=== PATIENT | male | born 1965 | race Caucasian/White ===

== ENCOUNTER 2021-04-27 21:38 | Inpatient (IN) | payer SELFPAY ==
[2021-04-27] MEDS ORDERED: SODIUM CHLORIDE 0.9% 1,000 ML IV STA (21:55)
--- NOTE | 2021-04-27 21:58 | ED ---
Overdose HPI - General Stated Complaint: Mental Health Time Seen by Provider: 04/27/21 21:50 - History of Present Illness Initial Comments: Patient's 55-year-old man brought to have evaluation after he took an overdose of his medications. Patient had been out drinking earlier. His had picked him up and brought him home. She states that they are going through a divorce so he has been stressed. The patient then reportedly told his children that would be around anymore because she had taken an overdose. He reportedly took the remainder of the medications in his gabapentin and atenolol bottles which was around 20 tablets of each. MD Complaint: intentional overdose Onset/Timin -: minutes(s) Intent: suicide attempt How Overdose Was Discovered: family/friend present at time Context: Intentional Overdose: relationship problems - Related Data Allergies Allergy/AdvReac Type Severity Reaction Status Date / Time NSAIDS (Non-Steroidal Allergy Rash/Hives Verified 04/27/21 22:40 Anti-Inflamma Review of Systems ROS Statement: Those systems with pertinent positive or pertinent negative responses have been documented in the HPI. ROS Other: All systems not noted in ROS Statement are negative. Limitations: ROS unobtainable due to patients medical condition General Exam General appearance: alert, appears intoxicated Head exam: Present: atraumatic, normocephalic Eye exam: Present: normal appearance, nystagmus. Absent: scleral icterus, conjunctival injection Neck exam: Present: normal inspection, full ROM. Absent: tenderness Respiratory exam: Present: normal lung sounds bilaterally. Absent: respiratory distress, wheezes, rales, rhonchi, stridor, accessory muscle use Cardiovascular Exam: Present: regular rate, normal rhythm, normal heart sounds. Absent: systolic murmur, diastolic murmur, rubs, gallop GI/Abdominal exam: Present: soft, hernia (Umbilical hernia, nontender). Absent: distended, tenderness, guarding, rebound, rigid, mass, pulsatile mass Extremities exam: Present: normal inspection, normal capillary refill. Absent: pedal edema, calf tenderness Back exam: Present: normal inspection Neurological exam: Present: alert, oriented X3. Absent: motor sensory deficit Skin exam: Present: warm, dry, intact, normal color. Absent: rash Course Vital Signs 04/27/21 21:41 Temperature 97.5 F L Pulse Rate 96 Respiratory 17 Rate Blood Pressure 125/97 O2 Sat by Pulse 95 Oximetry Procedures - Restraint - Face to Face Restraint Occurrence 1 Patient's Immediate Situation: Endangers others' safety Patient's Reaction to the Intervention: Uncooperative, Angry, Belligerent, Suspicious, Resistive to care Patient's Medical & Behavioral Condition: Drowsy, Depressed, Suicidal thoughts Need to Continue or Terminate Restraint or Seclusion: Continue Face to Face Eval of Restraint Date: 04/27/21 Face to Face Eval of Restraint Time: 21:50 Medical Decision Making - Lab Data Result diagrams: 04/27/21 22:00 04/27/21 22:00 Lab Results 04/27/21 04/27/21 04/27/21 Range/Units 22:00 22:00 22:00 WBC 13.2 H (3.8-10.6) k/uL RBC 6.43 H (4.30-5.90) m/uL Hgb 15.2 (13.0-17.5) gm/dL Hct 47.5 (39.0-53.0) % MCV 73.9 L (80.0-100.0) fL MCH 23.7 L (25.0-35.0) pg MCHC 32.1 (31.0-37.0) g/dL RDW 14.9 (11.5-15.5) % Plt Count 267 (150-450) k/uL MPV 6.6 Neutrophils % 53 % Lymphocytes % 36 % Monocytes % 5 % Eosinophils % 3 % Basophils % 1 % Neutrophils # 7.1 (1.3-7.7) k/uL Lymphocytes # 4.7 (1.0-4.8) k/uL Monocytes # 0.6 (0-1.0) k/uL Eosinophils # 0.4 (0-0.7) k/uL Basophils # 0.1 (0-0.2) k/uL Microcytosis Slight Sodium 143 (137-145) mmol/L Potassium 3.9 (3.5-5.1) mmol/L Chloride 100 (98-107) mmol/L Carbon Dioxide 27 (22-30) mmol/L Anion Gap 16 mmol/L BUN 13 (9-20) mg/dL Creatinine 0.88 (0.66-1.25) mg/dL Est GFR (CKD-EPI)AfAm >90 (>60 ml/min/1.73 sqM) Est GFR (CKD-EPI)NonAf >90 (>60 ml/min/1.73 sqM) Glucose 100 H (74-99) mg/dL Calcium 9.5 (8.4-10.2) mg/dL Total Bilirubin 0.5 (0.2-1.3) mg/dL AST 30 (17-59) U/L ALT 41 (4-49) U/L Alkaline Phosphatase 99 (38-126) U/L Troponin I <0.012 (0.000-0.034) ng/mL Total Protein 8.5 H (6.3-8.2) g/dL Albumin 5.0 (3.5-5.0) g/dL Salicylates <1.0 mg/dL Acetaminophen <10.0 ug/mL Serum Alcohol 248 H* mg/dL Coronavirus (PCR) (Not Detectd) 04/27/21 Range/Units 22:03 WBC (3.8-10.6) k/uL RBC (4.30-5.90) m/uL Hgb (13.0-17.5) gm/dL Hct (39.0-53.0) % MCV (80.0-100.0) fL MCH (25.0-35.0) pg MCHC (31.0-37.0) g/dL RDW (11.5-15.5) % Plt Count (150-450) k/uL MPV Neutrophils % % Lymphocytes % % Monocytes % % Eosinophils % % Basophils % % Neutrophils # (1.3-7.7) k/uL Lymphocytes # (1.0-4.8) k/uL Monocytes # (0-1.0) k/uL Eosinophils # (0-0.7) k/uL Basophils # (0-0.2) k/uL Microcytosis Sodium (137-145) mmol/L Potassium (3.5-5.1) mmol/L Chloride (98-107) mmol/L Carbon Dioxide (22-30) mmol/L Anion Gap mmol/L BUN (9-20) mg/dL Creatinine (0.66-1.25) mg/dL Est GFR (CKD-EPI)AfAm (>60 ml/min/1.73 sqM) Est GFR (CKD-EPI)NonAf (>60 ml/min/1.73 sqM) Glucose (74-99) mg/dL Calcium (8.4-10.2) mg/dL Total Bilirubin (0.2-1.3) mg/dL AST (17-59) U/L ALT (4-49) U/L Alkaline Phosphatase (38-126) U/L Troponin I (0.000-0.034) ng/mL Total Protein (6.3-8.2) g/dL Albumin (3.5-5.0) g/dL Salicylates mg/dL Acetaminophen ug/mL Serum Alcohol mg/dL Coronavirus (PCR) Not Detected (Not Detectd) - EKG Data -: EKG Interpreted by Mn EKG shows normal: sinus rhythm, axis (Normal), intervals (NJ interval 230 milliseconds, prolonged consistent with first-degree AV block. QRS duration 94 ms, QTC 437 ms, both normal), QRS complexes (Normal), ST-T waves (Normal) Rate: normal (Rate 92 bpm) Disposition Referrals: None,Stated [REFERRING] - 1-2 days
[2021-04-27 22:07] LABS: Basophils # (A) 0.1 k/uL (0-0.2); Basophils % (A) 1 %; Eosinophils # (A) 0.4 k/uL (0-0.7); Eosinophils % (A) 3 %; HCT 47.5 % (39.0-53.0); HGB 15.2 gm/dL (13.0-17.5); Lymphocytes # (A) 4.7 k/uL (1.0-4.8); Lymphocytes % (A) 36 %; MCH 23.7 pg (25.0-35.0); MCHC 32.1 g/dL (31.0-37.0); MCV 73.9 fL (80.0-100.0); Mean Platelet Volume 6.6; Microcytosis Slight; Monocytes # (A) 0.6 k/uL (0-1.0); Monocytes % (A) 5 %; Neutrophils # (A) 7.1 k/uL (1.3-7.7); Neutrophils % (A) 53 %; Platelet Count 267 k/uL (150-450); RBC 6.43 m/uL (4.30-5.90); RDW 14.9 % (11.5-15.5); WBC 13.2 k/uL (3.8-10.6)
--- NOTE | 2021-04-27 22:21 | XR ---
EXAMINATION TYPE: XR chest 1V portable DATE OF EXAM: 04/27/2021 COMPARISON: NONE HISTORY: Overdose TECHNIQUE: Single view FINDINGS: There is no heart failure nor confluent pneumonic infiltrate. Costophrenic angles are clear . There is old right posterior sixth rib fracture. IMPRESSION: No active cardiopulmonary disease.
[2021-04-27 22:37] LABS: ALT 41 U/L (4-49); AST 30 U/L (17-59); Acetaminophen <10.0 ug/mL; African American GFR (CKD) >90 (>60 ml/min/1.73 sqM); Alkaline Phosphatase 99 U/L (38-126); Anion Gap 16 mmol/L; Blood Urea Nitrogen 13 mg/dL (9-20); Calcium 9.5 mg/dL (8.4-10.2); Carbon Dioxide 27 mmol/L (22-30); Chloride 100 mmol/L (98-107); Glucose 100 mg/dL (74-99); Non-African American GFR(CKD) >90 (>60 ml/min/1.73 sqM); Potassium 3.9 mmol/L (3.5-5.1); Salicylate <1.0 mg/dL; Sodium 143 mmol/L (137-145); Total Bilirubin 0.5 mg/dL (0.2-1.3); Total Protein 8.5 g/dL (6.3-8.2)
[2021-04-27 22:39] LABS: Alcohol 248 mg/dL
[2021-04-28 07:11] LABS: Amphetamine Screen,Urine Not Detected (NotDetected); Barbiturate Screen,Urine Not Detected (NotDetected); Benzodiazepines Screen,Urine Not Detected (NotDetected); Cocaine Screen,Urine Not Detected (NotDetected); Methadone Screen, Urine Not Detected (NotDetected); Opiate Screen,Urine Not Detected (NotDetected); Oxycodone Screen, Urine Not Detected (NotDetected); Phencyclidine Screen,Urine Not Detected (NotDetected); Tricyclic Antidepressant,Urine Not Detected (NotDetected); Urn Cannabinoid Scrn Not Detected (NotDetected)
[2021-04-28] MEDS: SODIUM CHLORIDE 0.9% 1,000 ML IV SCH (08:08)
[2021-04-28] MEDS ORDERED: MELATONIN 5 MG TABLET PO PRN (08:24)
[2021-04-28] MEDS ORDERED: ATORVASTATIN 40 MG TAB PO SCH (08:30)
[2021-04-28] MEDS ORDERED: GABAPENTIN 300 MG CAP PO SCH (09:00)
[2021-04-28 09:21] LABS: African American GFR (CKD) >90 (>60 ml/min/1.73 sqM); Anion Gap 10 mmol/L; Blood Urea Nitrogen 13 mg/dL (9-20); Calcium 8.6 mg/dL (8.4-10.2); Carbon Dioxide 26 mmol/L (22-30); Chloride 106 mmol/L (98-107); Glucose 90 mg/dL (74-99); Non-African American GFR(CKD) >90 (>60 ml/min/1.73 sqM); Sodium 142 mmol/L (137-145)
[2021-04-28 09:23] LABS: Basophils # (A) 0.1 k/uL (0-0.2); Basophils % (A) 0 %; Eosinophils # (A) 0.2 k/uL (0-0.7); Eosinophils % (A) 2 %; HCT 43.2 % (39.0-53.0); HGB 13.2 gm/dL (13.0-17.5); Hypochromasia Moderate; Lymphocytes # (A) 1.9 k/uL (1.0-4.8); Lymphocytes % (A) 17 %; MCH 23.4 pg (25.0-35.0); MCHC 30.4 g/dL (31.0-37.0); Mean Platelet Volume 7.4; Monocytes # (A) 0.6 k/uL (0-1.0); Monocytes % (A) 5 %; Neutrophils # (A) 8.4 k/uL (1.3-7.7); Neutrophils % (A) 75 %; Platelet Count 271 k/uL (150-450); RBC 5.61 m/uL (4.30-5.90); RDW 15.2 % (11.5-15.5); WBC 11.2 k/uL (3.8-10.6)
[2021-04-28 09:33] LABS: Magnesium 2.2 mg/dL (1.6-2.3); Potassium 5.5 mmol/L (3.5-5.1)
[2021-04-28] MEDS: FAMOTIDINE 20 MG/2 ML VIAL IV SCH ×2 (11:26→21:55)
[2021-04-28] MEDS: HEPARIN SODIUM,PORCINE/PF 5,000 UNIT/0.5 ML SYRINGE SQ SCH ×2 (11:27→21:50)
--- NOTE | 2021-04-28 11:40 | P.CNPUL ---
History of Present Illness Consult date: 04/28/21 Requesting physician: Bernard E Sheet Reason for consult: hypoxemia, other (Beta mahi overdose) Chief complaint: Altered mental status History of present illness: This is a 55-year-old male patient was brought into the emergency room after he admitted to taking half a bottle of atenolol,gabapentin and Requip. He apparently is going through a divorce and was depressed and had been drinking. Alcohol level 248 on arrival. He is seen in the emergency room. Currently obtunded. Arousable. Garbled speech. Requiring 5 L nasal cannula to maintain O2 saturations in the 90s. His been afebrile. Heart rate in the 70s and 80s. Blood pressure stable. Chest x-ray reveals no acute pulmonary process. EKG reveals sinus rhythm with a first-degree AV block. White count 11.2. Hemoglobin 13.2. Sodium 142. Potassium 5.5. Creatinine 0.9. Lactic acid 1.6. Troponins negative 3. Urine drug screen negative. Alcohol level 248. Alcocer virus by PCR not detected. Normal saline at 100 ML's per hour. Heparin for DVT prophylaxis. Review of Systems ROS unobtainable: due to mental status Past Medical History Past Medical History: Hyperlipidemia, Sleep Apnea/CPAP/BIPAP History of Any Multi-Drug Resistant Organisms: None Reported Past Surgical History: No Surgical Hx Reported Past Psychological History: Depression Smoking Status: Current every day smoker Past Alcohol Use History: Abuse, Daily, Heavy Past Drug Use History: Prescription Drug Abuse Medications and Allergies Home Medications Medication Instructions Recorded Confirmed Type Acetaminophen Tab [Tylenol] 325 mg PO DAILY PRN 04/27/21 04/27/21 History Atorvastatin [Lipitor] 40 mg PO DIRECTED 04/27/21 04/27/21 History Gabapentin 300 mg PO TID 04/27/21 04/27/21 History Melatonin 5 mg PO HS 04/27/21 04/27/21 History atenoloL 25 mg PO DAILY 04/27/21 04/27/21 History rOPINIRole HCL [Requip] 4 mg PO HS 04/27/21 04/27/21 History Allergies Allergy/AdvReac Type Severity Reaction Status Date / Time NSAIDS (Non-Steroidal Allergy Rash/Hives Verified 04/27/21 22:40 Anti-Inflamma Physical Exam Vitals: Vital Signs Temp Pulse Resp BP Pulse Ox 04/28/21 07:35 98.4 F 76 18 123/78 96 04/28/21 05:46 78 18 109/65 97 04/28/21 03:31 77 17 106/45 97 04/28/21 01:01 83 19 121/73 93 L 04/27/21 23:09 86 15 101/67 95 04/27/21 21:41 97.5 F L 96 17 125/97 95 Intake and Output 04/27/21 04/28/21 04/28/21 22:59 06:59 14:59 Other: Weight 122.47 kg GENERAL EXAM: Obtunded but arousable, 55-year-old male, on 5 L nasal cannula, in no apparent distress. HEAD: Normocephalic. EYES: Normal reaction of pupils, equal size. NOSE: Clear with pink turbinates. THROAT: No erythema or exudates. NECK: No masses, no JVD. CHEST: No chest wall deformity. LUNGS: Equal air entry with no crackles, wheeze, rhonchi or dullness. CVS: S1 and S2 normal with no audible murmur, regular rhythm. ABDOMEN: No hepatosplenomegaly, normal bowel sounds, no guarding or rigidity. SPINE: No scoliosis or deformity SKIN: No rashes CENTRAL NERVOUS SYSTEM: No focal deficits, tone is normal in all 4 extremities. EXTREMITIES: There is no peripheral edema. No clubbing, no cyanosis. Peripheral pulses are intact. Results - Laboratory Findings CBC and BMP: 04/28/21 07:19 04/28/21 07:19 Abnormal lab findings: Abnormal Labs 04/27/21 04/27/21 04/27/21 22:00 22:00 22:00 WBC 13.2 H RBC 6.43 H MCV 73.9 L MCH 23.7 L MCHC Neutrophils # Potassium Glucose 100 H Plasma Lactic Acid Lewis 2.9 H* Total Protein 8.5 H Serum Alcohol 248 H* 04/28/21 04/28/21 07:19 07:19 WBC 11.2 H RBC MCV 77.0 L MCH 23.4 L MCHC 30.4 L Neutrophils # 8.4 H Potassium 5.5 H Glucose Plasma Lactic Acid Lewis Total Protein Serum Alcohol - Diagnostic Findings Chest x-ray: image reviewed Assessment and Plan Assessment: 1 Altered mental status secondary to suspected drug overdose of gabapentin, atenolol and Requip. Also excessive alcohol intake with EtOH level 248. Apparently going through a divorce and is depressed and attempted to commit suicide 2 Acute hypoxemic respiratory failure secondary to above, currently on 5 L nasal cannula Plan: The patient was seen and evaluated Contact poison control regarding beta mahi overdose Titrate the FiO2 as tolerated Psychiatric consult Cardiac monitoring We will continue to follow and make further recommendations based on his clinical status I, the cosigning physician, performed a history & physical examination of the patient. Lungs sounds are clear. Maintaining good O2 saturations in the 90s on 5 L/m per nasal cannula. I discussed the assessment and plan of care with my nurse practitioner, Saadia Encarnacion. I attest to the above consultation as dictated by her. Time with Patient: Greater than 30
--- NOTE | 2021-04-28 12:47 | P.HPIM ---
History of Present Illness This is a pleasant 55 years old male with past medical history of hyperlipidemia, sleep apnea on CPAP/BiPAP, depression, alcohol abuse, nicotine dependence and history of prescription drug abuse Patient seen and evaluated in the emergency room, patient was still drowsy with slurred speech from his alcohol intoxication however we had to remind the patient to stay awake and repeat questions several times psych and answered. Patient he knows he is in [facility], he thought today is April and he noted the president name Laura. He states to me that she took his pills for restless leg syndrome, and consumed half of the bottle which he estimates about 15 pills. And told me he took also gabapentin 25 pills, and he did that because he wanted to kill himself. When I asked him about atenolol, or beta mahi he was taking at home as there was suspicion of beta mahi overdose on admission by ED team, he told me he is not taking atenolol since November of this year and he did not overdose with it. Again patient once ask questions go back to sleep. He denies any specific complaint to me. No headache or weakness or numbness. No chest pain or dyspnea. No abdominal pain. No nausea vomiting. I discussed the case with the bedside nurse rena, who confirmed to me that poison control has been contacted yesterday and actually this morning they called back to check on the patient, poison control staff has been updated with medication overdose to include gabapentin and Requip, still they recommended to continue with conservative management and monitoring for now. Currently Vitas looks stable, his heart rate is 76-78. Labs showing mild leukocytosis of 13.2, hemoglobin 15.2. BNP and liver enzymes were unremarkable Lactic acid elevated 2.9 came down 1.6 Troponin 2 are negative less than 0.012. Serum alcohol elevated 248 Salicylate is less than 1 and acetaminophen less than 10 Urine drug screen is negative Alcocer virus not detected EKG showing normal sinus rhythm with first-degree AV block at 92 bpm, no significant ST-T changes and QTC is 437. Chest x-ray: No acute process. An emergency room patient received normal Sitter is at bedside currently when I saw him in the emergency room Review of Systems CONSTITUTIONAL: No fever, no malaise, no fatigue. HEENT: No recent visual problems or hearing problems. Denied any sore throat. CARDIOVASCULAR: No orthopnea, PND, no palpitations, no syncope. PULMONARY: No shortness of breath, no cough, no hemoptysis. GASTROINTESTINAL: No diarrhea, no nausea, no vomiting, no abdominal pain. Normoactive bowel sounds. NEUROLOGICAL: No headaches, no weakness, no numbness. HEMATOLOGICAL: Denies any bleeding or petechiae. GENITOURINARY: Denies any burning micturition, frequency, or urgency. MUSCULOSKELETAL/RHEUMATOLOGICAL: Denies any joint pain, swelling, or any muscle pain. ENDOCRINE: Denies any polyuria or polydipsia. Past Medical History Past Medical History: Hyperlipidemia, Sleep Apnea/CPAP/BIPAP History of Any Multi-Drug Resistant Organisms: None Reported Past Surgical History: No Surgical Hx Reported Past Psychological History: Depression Smoking Status: Current every day smoker Past Alcohol Use History: Abuse, Daily, Heavy Past Drug Use History: Prescription Drug Abuse Medications and Allergies Home Medications Medication Instructions Recorded Confirmed Type Acetaminophen Tab [Tylenol] 325 mg PO DAILY PRN 04/27/21 04/27/21 History Atorvastatin [Lipitor] 40 mg PO DIRECTED 04/27/21 04/27/21 History Gabapentin 300 mg PO TID 04/27/21 04/27/21 History Melatonin 5 mg PO HS 04/27/21 04/27/21 History atenoloL 25 mg PO DAILY 04/27/21 04/27/21 History rOPINIRole HCL [Requip] 4 mg PO HS 04/27/21 04/27/21 History Allergies Allergy/AdvReac Type Severity Reaction Status Date / Time NSAIDS (Non-Steroidal Allergy Rash/Hives Verified 04/27/21 22:40 Anti-Inflamma Physical Exam Vitals: Vital Signs Temp Pulse Resp BP Pulse Ox 04/28/21 07:35 98.4 F 76 18 123/78 96 04/28/21 05:46 78 18 109/65 97 04/28/21 03:31 77 17 106/45 97 04/28/21 01:01 83 19 121/73 93 L 04/27/21 23:09 86 15 101/67 95 04/27/21 21:41 97.5 F L 96 17 125/97 95 Intake and Output 04/27/21 04/28/21 04/28/21 22:59 06:59 14:59 Other: Weight 122.47 kg -GENERAL: The patient is alert and oriented x3, very drowsy and he goes back to sleep easily, easily to arouse not in any acute distress. Obese HEENT: Pupils are round and equally reacting to light. EOMI. No scleral icterus. No conjunctival pallor. Normocephalic, atraumatic. No pharyngeal erythema. No thyromegaly. CARDIOVASCULAR: S1 and S2 present. No murmurs, rubs, or gallops. PULMONARY: Chest is clear to auscultation, no wheezing or crackles. ABDOMEN: Soft, nontender, nondistended, normoactive bowel sounds. No palpable organomegaly. MUSCULOSKELETAL: No joint swelling or deformity. EXTREMITIES: No cyanosis, clubbing, or pedal edema. NEUROLOGICAL: Gross neurological examination did not reveal any focal deficits. SKIN: No rashes. No petechiae Results CBC & Chem 7: 04/28/21 07:19 04/28/21 07:19 Labs: Abnormal Lab Results - Last 24 Hours (Table) 04/27/21 04/27/21 04/27/21 Range/Units 22:00 22:00 22:00 WBC 13.2 H (3.8-10.6) k/uL RBC 6.43 H (4.30-5.90) m/uL MCV 73.9 L (80.0-100.0) fL MCH 23.7 L (25.0-35.0) pg Glucose 100 H (74-99) mg/dL Plasma Lactic Acid Lewis 2.9 H* (0.7-2.0) mmol/L Total Protein 8.5 H (6.3-8.2) g/dL Serum Alcohol 248 H* mg/dL Assessment and Plan Assessment: Drug overdose, gabapentin and Requip are suspected. Also there was a suspicion of beta mahi however patient denies Depression and suicidal ideation Nicotine dependence alcohol abuse Hyperlipidemia Sleep Apnea/CPAP/BIPAP Plan: this is a pleasant 55 years old male who presents with beta mahi overdose Continue with telemetry and monitoring heart rate. Hold atenolol for now. Hold gabapentin and Requip Continue with normal saline Pulmonary and psychiatric team already consulted, will follow their r ecommendation continue with sitter at bedside Labs and medication were reviewed.. Continue same treatment. Continue with symptomatic treatment. Resume home medication. Monitor lytes and vitals. DVT and GI prophylaxis. Further recommendations depends on the clinical course of the patient DVT prophylaxis: Subcutaneous heparin GI Prophylaxis: Pepcid Prognosis is guarded
--- NOTE | 2021-04-28 13:11 | P.CN ---
Psychiatric Consult - . Consult date: 04/28/21 Consult:: 04/28/21 12:55 History of present illness: This is a psychiatric assessment on Adrián bhatia is a 55-year-old male and was seen in the ER Patient was brought in in an intoxicated state as well as after an overdose with 20 capsules of gabapentin The chart also shows that he also took 20 tablets of atenolol which actually now has been clarified as ropinirole The patient admits to severe depression Patient's speech is extremely slurry and is difficult to follow and I could only get few facts in between Patient also is sleepy and fatigued and in fact fell asleep in the middle of the interview Patient admits to feeling helpless and hopeless The staff had reported that the patient is less aggressive and agitated since he has been hospitalized and since his alcohol level has come down from 248 Patient admits that he has alcohol problem and can drink anywhere from 5-8 beers every day Patient states that he and his have been having marital problems for a long time and that she has filed for a divorce in December of this year Patient states that he is gone from home quite a bit and 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 [place] Patient states that his now is constantly busy on the phone with her boyfriend and that this has been very hard for him to handle Unable to get any further history on his depression since he fell asleep We do not know yet if the patient had impulsively acting out or a preplanned suicide attempt Past history personal and social history: has Not be dealt with this time due to above reasons Further information will be collected from the patient or family members if available Mental status examination: Reveals a middle-aged obese male who was having his lunch Patient however seems to also struggling to keep awake Patient's speech is very slurry Affect was flat Patient admits to feeling depressed Patient also admits to feeling helpless and hopeless Patient made some other comments which could not be understood since at times he seem to talk rapidly Patient's formal and operational judgment are impaired Patient's problem-solving skills are poor Patient remains very projective His self-esteem and confidence are impaired Diagnostic impression: Adjustment disorder with mixed emotional features Major depressive disorder acute Alcohol use disorder chronic Marital problems/relationship problems Plan: Request was made from the unit for involuntary paperwork to be filled out due to patient's agitation and aggression at the time of admission and will be maintained until we can have the patient sign in voluntarily since he does appear to have some insight since the alcohol level is come down 2 patient is a good candidate for inpatient psychiatric hospitalization after medical stabilization although at this point patient is still under the influence of the overdose and appears to be in need of hospitalization in the ER/ICU 3 maintain supportive care and one-to-one observation with a sitter 4 thank you" kind referral please contact me if any further questions Jordan Bowens M.D 04/28/21 04/28/21 13:07
[2021-04-28] MEDS: NICOTINE 21MG/24HR PATCH TRANSDERM SCH (18:28)
[2021-04-28] MEDS ORDERED: rOPINIRole HCL 4 MG TABLET PO SCH (21:00)
[2021-04-29] MEDS: SODIUM CHLORIDE 0.9% 1,000 ML IV SCH ×4 (00:05→09:59)
[2021-04-29] MEDS ORDERED: LORazepam 2 MG/ML INJ IV PRN (00:53)
[2021-04-29] MEDS: ACETAMINOPHEN TAB 325 MG TAB PO PRN ×2 (00:59→08:07)
[2021-04-29] MEDS: NICOTINE 21MG/24HR PATCH TRANSDERM SCH (05:51)
[2021-04-29] MEDS: HEPARIN SODIUM,PORCINE/PF 5,000 UNIT/0.5 ML SYRINGE SQ SCH (07:45)
[2021-04-29] MEDS: FAMOTIDINE 20 MG/2 ML VIAL IV SCH (07:46)
[2021-04-29 07:52] VITALS: RESP 16
[2021-04-29] MEDS ORDERED: ASPIRIN 325 MG TAB PO SCH (09:00)
[2021-04-29] MEDS ORDERED: THIAMINE 100 MG TAB PO SCH (09:00)
--- NOTE | 2021-04-29 09:13 | P.PN ---
Subjective Progress Note Date: 04/29/21 Principal diagnosis: Drug overdose, multidrug overdose This is a 55-year-old male patient was brought into the emergency room after he admitted to taking half a bottle of atenolol,gabapentin and Requip. He apparently is going through a divorce and was depressed and had been drinking. Alcohol level 248 on arrival. He is seen in the emergency room. Currently obtunded. Arousable. Garbled speech. Requiring 5 L nasal cannula to maintain O2 saturations in the 90s. His been afebrile. Heart rate in the 70s and 80s. Blood pressure stable. Chest x-ray reveals no acute pulmonary process. EKG reveals sinus rhythm with a first-degree AV block. White count 11.2. Hemoglob in 13.2. Sodium 142. Potassium 5.5. Creatinine 0.9. Lactic acid 1.6. Troponins negative 3. Urine drug screen negative. Alcohol level 248. Alcocer virus by PCR not detected. Normal saline at 100 ML's per hour. Heparin for DVT prophylaxis. Reevaluated today on 04/29/2021, patient is feeling great. Apparently the patient may have overdosed on gabapentin and on the Requip. He is feeling b [place] today, relatively asymptomatic. And I am cleaning the patient from the pulmonary perspective to be discharged home if cleared by psychiatry. Otherwise the patient may have to be transferred to psychiatric floor. Objective - Vital Signs Vital signs: Vital Signs Temp 97.8 F 04/29/21 07:50 Pulse 71 04/29/21 07:50 Resp 16 04/29/21 07:50 BP 109/64 04/29/21 07:50 Pulse Ox 94 L 04/29/21 07:50 Intake & Output 04/28/21 04/29/21 04/29/21 18:59 06:59 18:59 Intake Total 1800 Balance 1800 Weight 122.47 kg Intake: Intake, IV Titration 1200 Amount Sodium Chloride 0.9% 1, 1200 000 ml @ 100 mls/hr IV . Q10H AP Rx#:[id number] Oral 600 Other: Voiding Method Bedside Commode Toilet # Voids 2 # Bowel Movements 4 - Exam Physical Exam: Revealed 55-year-old white male in no distress. Head: Atraumatic normocephalic. HEENT:[Neck is supple.] [No neck masses.] [No thyromegaly.] [No JVD.] Chest: [Clear throughout, no crackles, no rhonchi, no wheezes.] Cardiac Exam: [Normal S1 and S2, no S3 gallop, no murmur.] Abdomen: [Soft, nontender, no megaly, no rebound, no guarding, normal bowel sounds.] Extremities: [No clubbing, no edema, no cyanosis.] Neurological Exam: [No focal neurologic deficit.] Alert oriented 3 Psychiatric: Normal mood affect and normal mental status examination. Skin: No rashes. - Labs CBC & Chem 7: 04/28/21 07:19 04/28/21 07:19 Labs: Abnormal Lab Results - Last 24 Hours (Table) 04/28/21 04/28/21 Range/Units 07:19 07:19 WBC 11.2 H (3.8-10.6) k/uL MCV 77.0 L (80.0-100.0) fL MCH 23.4 L (25.0-35.0) pg MCHC 30.4 L (31.0-37.0) g/dL Neutrophils # 8.4 H (1.3-7.7) k/uL Potassium 5.5 H (3.5-5.1) mmol/L Assessment and Plan Assessment: Impression: Altered mental status second to overdose on gabapentin and equal. Acute alcohol intoxication on presentation. Severe depression Recommendation: Patient is doing extremely well today, We will sign off seeing this patient, Psychiatry to decide whether the patient could be discharged home or admitted to psychiatric floor. We will sign off and see on when necessary basis. Time with Patient: Less than 30
[2021-04-29] MEDS ORDERED: ALPRAZolam 0.5 MG TAB PO PRN (10:56)
[2021-04-29 10:57] LABS: BUN/Creat Ratio 14.33 Ratio (12.00-20.00); Blood Urea Nitrogen 13.4 mg/dL (9.0-27.0); Carbon Dioxide 27.2 mmol/L (20.0-27.5); Chloride 104 mmol/L (96-109); Chol/HDL Ratio 4.02 Ratio; Glucose 102 mg/dL (70-110); LDL Cholesterol,Calculated 56.5 mg/dL (0.0-131.0); Non-African American GFR(CKD) 91.5 (60.0-200.0); Potassium 4.4 mmol/L (3.5-5.5); Sodium 140 mmol/L (135-145)
[2021-04-29 11:04] LABS: Basophils # (A) 0.05 X 10*3/uL (0.00-0.10); Basophils % (A) 0.5 %; Eosinophils # (A) 0.27 X 10*3/uL (0.04-0.35); Eosinophils % (A) 2.7 %; HCT 41.9 % (39.6-50.0); HGB 12.5 g/dL (13.0-17.0); Lymphocytes # (A) 3.25 X 10*3/uL (0.90-5.00); MCH 22.7 pg (27.0-32.0); MCHC 29.8 g/dL (32.0-37.0); MCV 76.2 fL (80.0-97.0); Mean Platelet Volume 11.4 fL (9.5-12.2); Monocytes # (A) 0.61 X 10*3/uL (0.20-1.00); Monocytes % (A) 6.2 %; Neutrophils # (A) 5.64 X 10*3/uL (1.80-7.70); Neutrophils % (A) 57.2 %; Platelet Count 160 X 10*3/uL (140-440); RDW 16.4 % (11.5-14.5); WBC 9.86 X 10*3/uL (4.50-10.00)
--- NOTE | 2021-04-29 12:15 | P.PN ---
Subjective Progress Note Date: 04/29/21 Principal diagnosis: Adjustment disorder with mixed emotional features Major depressive disorder acute Alcohol use disorder unspecified Marital problems/relationship problems Subjective data: : I feel so much better, all I wanted to do is go there and shredder picker my things and leave I was in a bad place and did not think right I do not have any thoughts of wanting to kill myself I will come there only for a day It was just overwhelming to see her constantly talking to her boyfriend I feel for my 2 young children ages 13 and 11 I don't live with them and I plan to take my things and leave I usually work in [employer] and I'm hoping that I will have another assignment coming up soon " I was also upset that she had embezzled a lot of the money that was in our joint account and now I do not know how I will handle things" Objective data: The patient is alert and oriented to time place and person Patient's speech is now clear coherent and relevant His thought processes are goal-directed sequential and logical Patient admits that he feels a lot better and wants to move forward in that he was caught up in a impulsive and a negative state of mind Patient still continues to minimize his alcohol use and dependency Patient's formal and operational judgment has improved Insight in his addiction and his contribution to his suicide attempt remains poor Impression: Adjustment disorder with mixed emotional features Major depressive disorder acute Alcohol use disorder unspecified Marital conflicts/relationship problems Plan: With the seriousness of the patient's suicide attempt the patient appears to be in need of psychosocial education especially in relation to his alcohol abuse and dependency and his tendency to lower his coping skills resulting in a major suicide attempt Patient will could benefit from motivational interventional treatment focusing on his alcohol abuse and dependency and his contribution to his depression and possible marital conflicts and stressors The patient also appears to need time to work out on the current stressors with his finances, other alternative living arrangements where patient if he goes back to his previous unhealthy living situation as well as drinking may lead back to his similar outcome Inpatient psychiatric hospitalization is recommended after medical clearance Thank you very much for the kind referral and we'll follow this patient along with you Desmond Bowens M.D. 04/29/21 Objective - Vital Signs Vital signs: Vital Signs Temp 97.8 F 04/29/21 07:50 Pulse 71 04/29/21 08:00 Resp 16 04/29/21 08:00 BP 109/64 04/29/21 07:50 Pulse Ox 94 L 04/29/21 07:50 Intake & Output 04/28/21 04/29/21 04/29/21 18:59 06:59 18:59 Intake Total 1800 118 Balance 1800 118 Weight 122.47 kg Intake: Intake, IV Titration 1200 Amount Sodium Chloride 0.9% 1, 1200 000 ml @ 100 mls/hr IV . Q10H AP Rx#:[id number] Oral 600 118 Other: Voiding Method Bedside Commode Toilet Toilet # Voids 2 # Bowel Movements 4 - Labs CBC & Chem 7: 04/29/21 05:00 04/29/21 05:00 Labs: Abnormal Lab Results - Last 24 Hours (Table) 04/29/21 04/29/21 Range/Units 05:00 05:00 Hgb 12.5 L (13.0-17.0) g/dL MCV 76.2 L (80.0-97.0) fL MCH 22.7 L (27.0-32.0) pg MCHC 29.8 L (32.0-37.0) g/dL RDW 16.4 H (11.5-14.5) % Absolute Nucleated RBC 0.03 H (0.00-0.00) X 10*3/uL NRBC/100 WBC Diff 0.3 H (0.0-0.0) /100 WBCS Anion Gap 8.90 L (10.00-18.00) mmol/L Triglycerides 232.00 H (0.00-149.00) mg/dL VLDL Cholesterol, Calc 46.40 H (5.00-40.00) mg/dL HDL Cholesterol 34.10 L (40.00-60.00) mg/dL
[2021-04-29 14:01] VITALS: BP 118/76; PULSE 69; TEMP 97.7
[2021-04-29] MEDS ORDERED: GABAPENTIN 300 MG CAP PO STA (14:56)
[2021-04-29] MEDS ORDERED: MAG HYDROX/AL HYDROX/SIMETH 30 ML CUP PO PRN (16:05)
[2021-04-29] MEDS ORDERED: ACETAMINOPHEN TAB 325 MG TAB PO PRN (16:05)
[2021-04-29] MEDS ORDERED: MAGNESIUM HYDROXIDE 2,400 MG/10 ML CUP PO PRN (16:05)
[2021-04-29] MEDS ORDERED: LORazepam 1 MG TAB PO PRN (16:05)
[2021-04-29] MEDS ORDERED: LORazepam 2 MG/ML INJ IM PRN (16:16)
[2021-04-29] MEDS ORDERED: HALOPERIDOL LACTATE 5 MG/ML 1 ML VIAL IM PRN (16:17)
--- NOTE | 2021-04-29 23:53 | P.DS ---
Providers Date of admission: 04/28/21 03:37 Attending physician: Anika Gonzalez Consults: 04/28/21 03:37 Consult Physician Routine Consulting Provider: Vikash Christiansen Consult Reason/Comments: Beta mahi overdose Do you want consulting provider notified?: Yes 04/28/21 03:40 Consult Physician Routine Consulting Provider: Desmond Bowens Consult Reason/Comments: overdose Do you want consulting provider notified?: Yes 04/28/21 10:55 Consult Physician Urgent Consulting Provider: Destin Woods Consult Reason/Comments: overdose, suicide Do you want consulting provider notified?: Yes Primary care physician: [facility] Course: Diagnoses: Drug overdose, with gabapentin and Requip Also there was a suspicion of beta mahi however patient denies. Patient told me he wanted to kill himself Depression and suicidal ideation Nicotine dependence alcohol abuse Hyperlipidemia Sleep Apnea/CPAP/BIPAP Hospital course This is a pleasant 55 years old male with past medical history of hyperlipid emia, sleep apnea on CPAP/BiPAP, depression, alcohol abuse, nicotine dependence and history of prescription drug abuse Patient seen and evaluated in the emergency room, patient was still drowsy with slurred speech from his alcohol intoxication however we had to remind the patient to stay awake and repeat questions several times psych and answered. Patient he knows he is in [facility], he thought today is April and he noted the president name Laura. He states to me that she took his pills for restless leg syndrome, and consumed half of the bottle which he estimates about 15 pills. And told me he took also gabapentin 25 pills, and he did that because he wanted to kill himself. Poison control was contacted and they recommended conservative management and supportive care. Also patient evaluated by psychiatrist, patient was petitioned with cert in the chart (by psychiatrist) , patient needs inpatient psychiatric admission for psychiatrist Also patient evaluated by curing press maintainer who cleared him for discharge. This morning patient was fully awake and oriented, he was very agitated and anxious and grieving for alcohol and smoking, we have to give him Xanax, Ativan and gabapentin which helped calm him down. Today patient denies any chest pain, no abdominal pain, no nausea vomiting, and no dyspnea. No change in urine or bowel habits. No fever. Gait is normal Problems and management plan were discussed with the patient and he verbalized understanding and acceptance Patient was found stable and can be discharged to psych unit in guarded prognosis however he needs follow-up as an outpatient. Patient was instructed to follow up with PCP Dr. Art within one week and patient agrees Physical exam Gen: patient is a AAOx3, no distress CVS: S1-S2, RRR, no murmur Lungs: B/L CTA, no wheezing Abdomen: soft, no distention, no tenderness, positive bowel sounds Extremity: no leg edema or induration Time spent more than 35 minutes Plan - Discharge Summary Discharge Rx Participant: Yes New Discharge Prescriptions: No Action Atorvastatin [Lipitor] 40 mg PO DIRECTED rOPINIRole HCL [Requip] 4 mg PO HS Melatonin 5 mg PO HS Acetaminophen Tab [Tylenol] 325 mg PO DAILY PRN PRN Reason: Pain atenoloL 25 mg PO DAILY Gabapentin 300 mg PO TID Discharge Medication List Acetaminophen Tab [Tylenol] 325 mg PO DAILY PRN 04/27/21 [History] Atorvastatin [Lipitor] 40 mg PO DIRECTED 04/27/21 [History] Gabapentin 300 mg PO TID 04/27/21 [History] Melatonin 5 mg PO HS 04/27/21 [History] atenoloL 25 mg PO DAILY 04/27/21 [History] rOPINIRole HCL [Requip] 4 mg PO HS 04/27/21 [History] Follow up Appointment(s)/Referral(s): None,Stated [REFERRING] - 1-2 days Activity/Diet/Wound Care/Special Instructions: transfer with security compliance engineer please Discharge Disposition: TRANSFER TO PSYCH HOSP/UNIT
[2021-04-30] MEDS ORDERED: NICOTINE 14MG/24HR PATCH TRANSDERM SCH (09:00)
[2021-04-30] MEDS ORDERED: NALTREXONE HCL 50 MG TAB PO SCH (09:00)
== END 2021-04-29 15:55 | DRG 917 ==
LOC: EC 21:38 → 4SSUR 04-28 03:37 → 6NMEDSUR 04-29 03:31
PROVIDERS: ADMIT Hospitalist; ATTEND Hospitalist
DX: T42.6X2A Poisoning by other antiepileptic and sedative-hypnotic drugs, intentional self-harm, initial encounter (principal); J96.01 Acute respiratory failure with hypoxia; R45.851 Suicidal ideations; F33.2 Major depressive disorder, recurrent severe without psychotic features; F10.129 Alcohol abuse with intoxication, unspecified; E66.9 Obesity, unspecified; Z68.36 Body mass index [BMI] 36.0-36.9, adult; T42.8X2A Poisoning by antiparkinsonism drugs and other central muscle-tone depressants, intentional self-harm, initial encounter; Z20.822 Contact with and (suspected) exposure to COVID-19; Y90.8 Blood alcohol level of 240 mg/100 ml or more; K42.9 Umbilical hernia without obstruction or gangrene; I44.0 Atrioventricular block, first degree; G47.30 Sleep apnea, unspecified; R53.83 Other fatigue; G25.81 Restless legs syndrome; Z88.6 Allergy status to analgesic agent; D72.829 Elevated white blood cell count, unspecified; F43.23 Adjustment disorder with mixed anxiety and depressed mood; F17.210 Nicotine dependence, cigarettes, uncomplicated; E78.5 Hyperlipidemia, unspecified; Z63.0 Problems in relationship with spouse or partner; Z79.899 Other long term (current) drug therapy
CPT/HCPCS: 36415; 71045; 80048; 80053; 80061; 80143; 80179; 80306; 80320; 83605; 83735; 84484; 85025; 87635; 93005; 96360; 96361; 99285

== ENCOUNTER 2021-04-29 16:01 | Inpatient (IN) | payer BC ==
[2021-04-29] MEDS ORDERED: LORazepam 2 MG/ML INJ IM PRN (16:31)
[2021-04-29] MEDS ORDERED: HALOPERIDOL LACTATE 5 MG/ML 1 ML VIAL IM PRN (16:34)
[2021-04-29] MEDS ORDERED: MAGNESIUM HYDROXIDE 2,400 MG/10 ML CUP PO PRN (16:36)
[2021-04-29] MEDS ORDERED: ACETAMINOPHEN TAB 325 MG TAB PO PRN (16:36)
[2021-04-29] MEDS ORDERED: MAG HYDROX/AL HYDROX/SIMETH 30 ML CUP PO PRN (16:36)
[2021-04-29] MEDS: LORazepam 1 MG TAB PO PRN (20:07)
[2021-04-29] MEDS: NICOTINE 14MG/24HR PATCH TRANSDERM SCH (20:53)
[2021-04-30] MEDS: LORazepam 1 MG TAB PO PRN (03:04)
[2021-04-30] MEDS: NICOTINE 14MG/24HR PATCH TRANSDERM SCH (08:33)
[2021-04-30] MEDS: NALTREXONE HCL 50 MG TAB PO SCH (08:34)
[2021-04-30] MEDS: ACETAMINOPHEN TAB 325 MG TAB PO PRN (10:41)
--- NOTE | 2021-04-30 14:22 | P.HP ---
Psychiatric H&P - . H&P Date: 04/30/21 History & Physical: Allergies Allergy/AdvReac Type Severity Reaction Status Date / Time NSAIDS (Non-Steroidal Allergy Rash/Hives Verified 04/29/21 17:33 Anti-Inflamma Vital Signs Temp 97.3 F L 04/30/21 01:50 Pulse 73 04/30/21 01:50 Resp 16 04/30/21 01:50 BP 123/78 04/30/21 01:50 Pulse Ox Intake & Output 04/29/21 04/30/21 04/30/21 18:59 06:59 18:59 Weight 105.8 kg 04/30/21 14:09 IDENTIFYING DATA: Patient is a 55-year-old male who currently lives with his and 2 kids. They are currently going through a separation and divorce. He currently works in [employer] doing [employer]. HPI: Patient presented to the hospital for overdosing on Neurontin and Requip and a beta mahi that he is on. Patient was endorsing depression and suicidal thoughts. Patient was admitted to the medical floors over the weekend and treated for alcohol withdrawal and his overdose. Patient was seen by psychiatric consultation liaison and deemed to be appropriate for mental health admission. Patient signed adult voluntary form. His blood alcohol level on admission was 248. She was mentioning going through a divorce which has been causing a lot of stress and also that he is drinking 5-8 beers a day. He states that his already has another boyfriend and has been pressing him to leave the house. He states that he has a court hearing coming up over the custody of his children. He states that he came home from the bar and got into an argument with his and claims that he told her he was given a take his medications and go to sleep. He states that he "may have taken more than I should have". However he is minimizing his overdose and was very guarded and evasive about the events that occurred. He was very persistent and focused on discharge. He claims that he is feeling agitated being on the unit. He states that he was dealing with depression and anxiety before coming into the hospital. He claims that his sleep has been poor appetite as been fair. Patient denies any suicidal or homicidal ideations intent or plan. At this time patient denies any auditory or visual hallucinations. Patient denies any flight of ideas racing thoughts and increased in goal directed behavior. Patient admits to using alcohol daily as noted above. He states that he has never been in rehab however has had problems with alcohol in the past. He states that he had one DUI several years ago. He claims that he smokes cigarettes Boyce does not use any other recreational drugs PAST PSYCHIATRIC HISTORY: Patient states that he is never been diagnosed with any mental health condition. Patient denies being on any psychiatric medications. Patient denies any previous psychiatric hospitalizations. Patient denies any psychiatric outpatient follow-up. Patient denies any history of suicide attempts in the past. PMH: As per medical H&P. ALLERGIES: as per EMR CHEMICAL DEPENDENCY HISTORY: as per HPI FAMILY PSYCHIATRIC/SUBSTANCE USE HISTORY: denies SOCIAL HISTORY: Patient was born and raised in [facility]. He states that he completed high school. He claims that he has 6 children. He states that he is currently however going through a divorce. 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 MENTAL STATUS EXAM: General Appearance: Patient appears to be older than stated age, obese, wearing glasses, is alert, guarded/evasive. Confrontational and argumentative. Patient appears to have fair hygiene and grooming. Behavior: Patient is seated without any agitated behavior. Hostile and argumentative Speech: Patient's speech is fluent and nonpressured. Loud at times Mood/Affect: Patient reports their mood is depressed and anxious, affect is congruent Suicidality/Homicidality: Patient denies having any homicidal ideation intent or plan. Denies any suicidal ideations intent or plan Perceptions: Patient denies any visual hallucinations and denies any auditory hallucinations Though content/process: Very focused on discharge. Minimizing his circumstances and need for treatment. Poor insight. Memory and concentration: AOX3, grossly intact for the purposes of this session. Can spell "WORLD" backwards Judgment and insight: poor STRENGTHS/WEAKNESSES: strength is that patient is resilient. Weakness is that patient has poor judgment and is impulsive INTELLECT: average IMPRESSIONS: Major depressive disorder, severe without psychotic features Suicide attempt by overdose Alcohol use disorder Nicotine dependence PLAN: -Patient is admitted under voluntary status to MHU for stabilization of ps ychiatric symptoms and safety. Patient has signed adult voluntary form and medication consent and is placed in patient's chart. -Medications : Will start patient on Cymbalta 30 mg daily for mood/anxiety/pain. Remeron 15 mg daily at bedtime for sleep/appetite/mood. Melatonin 5 mg daily at bedtime for insomnia. 4 mg qhs requip for restless leg symptoms. -Ativan and Haldol PRN for agitation/aggression -Started thiamine, MVM for etoh use -CIWA protocol with Ativan PRN for ETOH withdrawal -Patient was informed of the risks, benefits and side effects of the medication and patient verbally consented to taking the medications. Patient signed med consent form and was placed in chart. -Internal Medicine consult to perform medical evaluation and physical. -NRT - nicotine patch -SW on board for discharge planning. Encourage patient to participate in groups to work on coping skills. 04/30/21 14:18
[2021-04-30] MEDS: THIAMINE 100 MG TAB PO SCH (16:01)
[2021-04-30] MEDS: FOLIC ACID 1 MG TAB PO SCH (16:01)
[2021-04-30] MEDS: GABAPENTIN 300 MG CAP PO SCH ×2 (16:01→20:11)
[2021-04-30] MEDS: atenoloL 25 MG TAB PO SCH (16:01)
[2021-04-30] MEDS: MULTIVITAMINS, THERA 1 EACH TAB PO SCH (16:01)
[2021-04-30] MEDS: DULoxetine HCL 30 MG CAPSULE.DR PO SCH (16:01)
[2021-04-30] MEDS: MIRTAZAPINE 15 MG TAB PO SCH (20:11)
[2021-04-30] MEDS: MELATONIN 5 MG TABLET PO SCH (20:11)
[2021-04-30] MEDS: rOPINIRole HCL 4 MG TABLET PO SCH (20:46)
--- NOTE | 2021-04-30 23:42 | P.CONS ---
History of Present Illness - History of Present Illness This is a pleasant 55 years old male with past medical history of hyperlipid emia, sleep apnea on CPAP/BiPAP, depression, alcohol abuse, nicotine dependence and history of prescription drug abuse Patient is known to my service as I discharged yesterday from general medical floor to psychiatric unit after he has been admitted for trying to kill himself with drug overdose with gabapentin and Requip as he told me then. Now on seeing him in the psych unit. Dressed up And walking in the hallway, fully awake and oriented, calm. He denies any specific symptoms. No chest pain or abdominal pain. Denies diet. No headache or weakness. Patient is been followed closely by psych service He is hemodynamically stable Currently his CIWA score is 0-1 Requip and gabapentin were restarted at home dose Review of Systems Review of systems CONSTITUTIONAL: No fever, no malaise, no fatigue. HEENT: No recent visual problems or hearing problems. Denied any sore throat. CARDIOVASCULAR: No orthopnea, PND, no palpitations, no syncope. PULMONARY: No shortness of breath, no cough, no hemoptysis. GASTROINTESTINAL: No diarrhea, no nausea, no vomiting, no abdominal pain. Normoactive bowel sounds. NEUROLOGICAL: No headaches, no weakness, no numbness. HEMATOLOGICAL: Denies any bleeding or petechiae. GENITOURINARY: Denies any burning micturition, frequency, or urgency. MUSCULOSKELETAL/RHEUMATOLOGICAL: Denies any joint pain, swelling, or any muscle pain. ENDOCRINE: Denies any polyuria or polydipsia. Past Medical History Past Medical History: Hyperlipidemia, Sleep Apnea/CPAP/BIPAP History of Any Multi-Drug Resistant Organisms: None Reported Past Surgical History: No Surgical Hx Reported Additional Past Surgical History / Comment(s): cataract surgery, regis and plate over right femur Past Anesthesia/Blood Transfusion Reactions: No Reported Reaction Past Psychological History: Depression Smoking Status: Current every day smoker Past Alcohol Use History: Abuse, Daily, Heavy Past Drug Use History: Prescription Drug Abuse Medications and Allergies Home Medications Medication Instructions Recorded Confirmed Type Acetaminophen Tab [Tylenol] 325 mg PO DAILY PRN 04/27/21 04/29/21 History Atorvastatin [Lipitor] 40 mg PO DIRECTED 04/27/21 04/29/21 History Gabapentin 300 mg PO TID 04/27/21 04/29/21 History Melatonin 5 mg PO HS 04/27/21 04/29/21 History atenoloL 25 mg PO DAILY 04/27/21 04/29/21 History rOPINIRole HCL [Requip] 4 mg PO HS 04/27/21 04/29/21 History Allergies Allergy/AdvReac Type Severity Reaction Status Date / Time NSAIDS (Non-Steroidal Allergy Rash/Hives Verified 04/29/21 17:33 Anti-Inflamma Physical Exam Vitals: Vital Signs Temp Pulse Resp BP 04/30/21 01:50 97.3 F L 73 16 123/78 04/29/21 17:44 98.6 F 78 20 138/89 Intake and Output 04/29/21 04/30/21 04/30/21 22:59 06:59 14:59 Other: Weight 105.8 kg -GENERAL: The patient is alert and oriented x3, not in any acute distress. obese HEENT: Pupils are round and equally reacting to light. EOMI. No scleral icterus. No conjunctival pallor. Normocephalic, atraumatic. No pharyngeal erythema. No thyromegaly. CARDIOVASCULAR: S1 and S2 present. No murmurs, rubs, or gallops. PULMONARY: Chest is clear to auscultation, no wheezing or crackles. ABDOMEN: Soft, nontender, nondistended, normoactive bowel sounds. No palpable organomegaly. MUSCULOSKELETAL: No joint swelling or deformity. EXTREMITIES: No cyanosis, clubbing, or pedal edema. NEUROLOGICAL: Gross neurological examination did not reveal any focal deficits. SKIN: No rashes. no petechiae. Assessment and Plan Assessment: Diagnoses Drug overdose, with gabapentin and Requip Also there was a suspicion of beta mahi however patient denies. Patient told me he wanted to kill himself Depression and suicidal ideation Nicotine dependence alcohol abuse Hyperlipidemia Sleep Apnea/CPAP/BIPAP Obesity with BMI of 36.5 Plan: This Is a pleasant 55 years old male who presents with severe major depression and suicidal ideation and attempt with drug overdose Currently he is with no somatic symptoms. Continue with management of his depression, suicidal ideation and other psychiatric illnesses as per primary psychiatrist team. Continue with atenolol, folic acid Continue with [facility] protocol for his alcohol withdrawal Continue with psych medication as per psych service Labs and medication were reviewed.. Continue same treatment. Continue with symptomatic treatment. Resume home medication. Monitor lytes and vitals. DVT and GI prophylaxis. Further recommendations as per clinical course of the patient Patient is mobile and does not need subcu heparin We recommend patient to follow-up with PCP in one week after discharge, he was instructed with the same with his PCP Dr. Art Thank you for consulting us, we will see the patient on as needed basis. Please feel free to contact us for any question
[2021-05-01] MEDS: NICOTINE 14MG/24HR PATCH TRANSDERM SCH (08:27)
[2021-05-01] MEDS: MULTIVITAMINS, THERA 1 EACH TAB PO SCH (08:27)
[2021-05-01] MEDS: atenoloL 25 MG TAB PO SCH (08:28)
[2021-05-01] MEDS: NALTREXONE HCL 50 MG TAB PO SCH (08:28)
[2021-05-01] MEDS: ATORVASTATIN 40 MG TAB PO SCH (08:28)
[2021-05-01] MEDS: FOLIC ACID 1 MG TAB PO SCH (08:28)
[2021-05-01] MEDS: GABAPENTIN 300 MG CAP PO SCH ×3 (08:28→20:43)
[2021-05-01] MEDS: DULoxetine HCL 30 MG CAPSULE.DR PO SCH (08:28)
[2021-05-01] MEDS: THIAMINE 100 MG TAB PO SCH (08:28)
--- NOTE | 2021-05-01 10:34 | P.PN ---
Progress Note - Text Progress Note Date: 05/01/21 Interval History: Patient was seen taking part in group this morning and was directable and agre eable to speak with continuity writer in the office. Patient appeared to have improvement in his irritability today and was more appropriate with continuity writer. She continues to be focused on discharge and going back to work. He continues to minimize the events that occurred prior to coming into the hospital. He states that his mood and anxiety of been gradually improving. He wants to remain on the same medica tion at this time and is tolerating it well. He claims that he was able to sleep better last night with the Remeron and claims that he did not have much restless leg symptoms. He states that he has been trying to go to groups and participate as best as he can. At this time patient denies any suicidal or homical ideations, intent or plan. Patient denies any auditory, visual hallucinations and denies any paranoia or delusions. Patient denies any side effects from the medications and has been compliant with meds. He is denying any withdrawal sx today. Mental Status Exam: General Appearance: Patient appears to be older than stated age, obese, wearing glasses, is alert, less guarded today. less argumentative. Patient appears to have fair hygiene and grooming. Behavior: Patient is seated without any agitated behavior. less argumentative today Speech: Patient's speech is fluent and nonpressured. Mood/Affect: Patient reports their mood is improving midlly, affect is congruent Suicidality/Homicidality: Patient denies having any homicidal ideation intent or plan. Denies any suicidal ideations intent or plan Perceptions: Patient denies any visual hallucinations and denies any auditory hallucinations Though content/process: Very focused on discharge. logical. Memory and concentration: AOX3, grossly intact for the purposes of this session. Judgment and insight: imrpoving midly Assessment Major depressive disorder, severe without psychotic features Suicide attempt by overdose Alcohol use disorder Nicotine dependence Plan: -Patient continues to meet criteria for inpatient psychiatric admission for symptom stabilization and safety. Patient has signed adult voluntary form and medication consent and was placed in patient's chart. -Medications: Continue Cymbalta 30 mg daily for mood/anxiety/pain, Remeron 15 mg daily at bedtime for sleep/mood/appetite. Melatonin 5 mg daily at bedtime for insomnia. Requip 4 mg daily at bedtime for restless leg symptoms. -When necessary Ativan and Haldol for agitation/aggression. -thiamine, MVM for etoh use. -NRT - nicotine patch -SW on board for discharge planning. Encouraged the patient to participate in milieu. If patient continues to do well and improve then likely discharge tomorrow back home
[2021-05-01] MEDS: ACETAMINOPHEN TAB 325 MG TAB PO PRN (11:08)
[2021-05-01] MEDS: MIRTAZAPINE 15 MG TAB PO SCH (20:43)
[2021-05-01] MEDS: MELATONIN 5 MG TABLET PO SCH (20:43)
[2021-05-01] MEDS: rOPINIRole HCL 4 MG TABLET PO SCH (20:43)
[2021-05-02 06:27] VITALS: RESP 16; TEMP 97.6
[2021-05-02] MEDS: NICOTINE 14MG/24HR PATCH TRANSDERM SCH (08:13)
[2021-05-02] MEDS: ATORVASTATIN 40 MG TAB PO SCH (08:14)
[2021-05-02] MEDS: THIAMINE 100 MG TAB PO SCH (08:14)
[2021-05-02] MEDS: MULTIVITAMINS, THERA 1 EACH TAB PO SCH (08:14)
[2021-05-02] MEDS: NALTREXONE HCL 50 MG TAB PO SCH (08:14)
[2021-05-02] MEDS: FOLIC ACID 1 MG TAB PO SCH (08:14)
[2021-05-02] MEDS: atenoloL 25 MG TAB PO SCH (08:14)
[2021-05-02] MEDS: DULoxetine HCL 30 MG CAPSULE.DR PO SCH (08:14)
[2021-05-02] MEDS: GABAPENTIN 300 MG CAP PO SCH (08:15)
[2021-05-02 08:17] VITALS: BP 110/67; PULSE 84
--- NOTE | 2021-05-02 10:40 | P.DS ---
Providers Date of admission: 04/29/21 16:01 Expected date of discharge: 05/02/21 Attending physician: eDstin Woods MD Consults: 04/29/21 16:25 Consult Physician Routine Consulting Provider: Anika Gonzalez Consult Reason/Comments: Health management Do you want consulting provider notified?: Yes Primary care physician: Janeth Herrmann Rubens - Discharge Diagnosis(es) (1) Major depressive disorder, recurrent severe without psychotic features Current Visit: Yes Status: Acute Priority: High (2) Suicide attempt Current Visit: Yes Status: Acute Priority: High (3) Alcohol use disorder Current Visit: Yes Status: Acute Priority: High (4) Nicotine dependence Current Visit: Yes Status: Acute Priority: Low Hospital Course: Admission HPI: Admission note was completed by teletypewriter installer "Patient is a 55-year-old male who currently lives with his and 2 kids. They are currently going through a separation and divorce. 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 Patient presented to the hospital for overdosing on Neurontin and Requip and a beta mahi that he is on. Patient was endorsing depression and suicidal thoughts. Patient was admitted to the medical floors over the weekend and treated for alcohol withdrawal and his overdose. Patient was seen by psychiatric consultation liaison and deemed to be appropriate for mental health admission. Patient signed adult voluntary form. His blood alcohol level on admission was 248. She was mentioning going through a divorce which has been causing a lot of stress and also that he is drinking 5-8 beers a day. He states that his already has another boyfriend and has been pressing him to leave the house. He states that he has a court hearing coming up over the custody of his children. He states that he came home from the bar and got into an argument with his and claims that he told her he was given a take his medications and go to sleep. He states that he "may have taken more than I should have". However he is minimizing his overdose and was very guarded and evasive about the events that occurred. He was very persistent and focused on discharge. He claims that he is feeling agitated being on the unit. He states that he was dealing with depression and anxiety before coming into the hospital. He claims that his sleep has been poor appetite as been fair. Patient denies any suicidal or homicidal ideations intent or plan. At this time patient denies any auditory or visual hallucinations. Patient denies any flight of ideas racing thoughts and increased in goal directed behavior. Patient admits to using alcohol daily as noted above. He states that he has never been in rehab however has had problems with alcohol in the past. He states that he had one DUI several years ago. He claims that he smokes cigarettes Boyce does not use any other recreational drugs" Hospital course: Upon admission to the unit patient was directable and agreeable to commence treatment and signed adult voluntary form. Patient got along well with other patients on the unit and followed unit protocol. Patient was compliant with the medications and denied any side effects throughout hospital course. Patient was started on Cymbalta 30 mg daily for mood/anxiety/pain, Remeron 15 mg daily at bedtime for mood/sleep/appetite. Patient was also started on melatonin 5 mg daily at bedtime for insomnia and restarted back on his Requip 4 mg daily at bedtime for restless leg symptoms.. Patient spoke of his stressors and engaged in therapy both group and individual. Patient was also seen by medical team for history and physical exam. Patient was on CIWA protocol with ativan prn for etoh withdrawal. Throughout the course of the hospitalization patient gradually improved with regards to mood, anxiety, sleep and became more future oriented with improved insight and judgment. On the day of discharge patient denied any suicidal or homicidal ideations intent or plan denied any auditory or visual hallucinations. Patient endorsed wanting to live for his kids and his family. The patient denied any access to guns or weapons. Patient denied any paranoia and did not endorse any delusions. Patient does have a significant history of substance abuse and was counseled on abstaining from all substances including alcohol and marijuana. Patient was offered however declined inpatient substance- abuse rehab. Patient was also counseled on the medications and need for regular compliance and was encouraged to follow-up with their outpatient appointment for mental health and also for primary care. Prior to discharge a family meeting will be arranged by social work manager to answer any questions and ensure safety upon discharge. Mental status exam: General Appearance: Patient appears to be overweight, older thanstated age is alert, pleasant, and cooperative. Patient is in no acute distress and has improved hygiene and grooming Behavior: Patient is calmly seated without any agitated behavior. Speech: Patient's speech is fluent and nonpressured. Mood/Affect: Patient reports their mood is "better", affect is congruent Suicidality/Homicidality: Patient denies having any suicidal or homicidal ideation intent or plan. Perceptions: Patient denies any auditory or visual hallucinations. Though content/process: There is no evidence of any delusional thought content and thought process is linear and goal-directed. more future oriented Memory and concentration: AOX3, grossly intact for the purposes of this session. Can spell "WORLD" backwards correctly. Judgment and insight: improved with guarded prognosis Impression: major depressive disorder, recurrent, severe without psychotic features alcohol use disorder suicide attempt Nicotine dependence Plan: -Continue with discharge today as patient has improved and stabilized psychiatrically and is not currently an imminent threat to himself and/or others. Patient will remain at chronically elevated risk for harm to self and/or others due to his substance abuse and impulsivity. -Continue medications: Cymbalta 30 mg daily for mood/anxiety/pain, Remeron 15 mg daily at bedtime for mood/sleep/appetite, melatonin 5 mg daily at bedtime for insomnia and frequent 4 mg daily at bedtime for restless leg symptoms. -Patient was counseled on the need for medication compliance and appropriate follow-up at mental health and also primary care for medical issues. Patient verbalized understanding and agreed. -Social work to arrange for and conduct family meeting to ensure safety upon discharge and answer any questions/concerns. Social work also to arrange for patients follow up appointments for psychiatric care along with follow up with primary care provider. Patient will be heading back to [place] where he lives and will be folowing up with there and also with his PCP. -Patient counseled on abstaining from recreational drugs and marijuana and alcohol. Was informed/educated on the adverse effects on their physical and mental health. Patient verbally agreed and understood. Patient was offered substance abuse treatment however declined at this time. -Patient was instructed to return to the hospital or seek immediate medical care if their psychiatric or medical symptoms do worsen or reoccur. Allergies Allergy/AdvReac Type Severity Reaction Status Date / Time NSAIDS (Non-Steroidal Allergy Rash/Hives Verified 04/29/21 17:33 Anti-Inflamma Vital Signs Temp 97.6 F 05/02/21 06:27 Pulse 84 05/02/21 08:17 Resp 16 05/02/21 06:27 BP 110/67 05/02/21 08:17 Pulse Ox 94 L 05/01/21 05:27 Vital Signs Temp 97.6 F 05/02/21 06:27 Pulse 84 05/02/21 08:17 Resp 16 05/02/21 06:27 BP 110/67 05/02/21 08:17 Pulse Ox 94 L 05/01/21 05:27 Patient Condition at Discharge: Stable Plan - Discharge Summary Discharge Rx Participant: No New Discharge Prescriptions: New DULoxetine HCL [Cymbalta] 30 mg PO DAILY 30 Days capsule Nicotine 14Mg/24Hr Patch [Habitrol] 1 patch TRANSDERM DAILY 14 Days patch Naltrexone HCl [Revia] 50 mg PO DAILY 14 Days tab Folic Acid 1 mg PO DAILY 14 Days tab Melatonin 5 mg PO HS 14 Days tablet Multivitamins, Thera [Multivitamin (formulary)] 1 each PO DAILY 14 Days tab Mirtazapine [Remeron] 15 mg PO HS 14 Days tab Acetaminophen Tab [Tylenol] 650 mg PO Q4HR PRN tab PRN Reason: Pain/Discomfort Thiamine [Vitamin B-1] 100 mg PO DAILY 14 Days tab Continue Gabapentin 300 mg PO TID 14 Days #42 cap atenoloL 25 mg PO DAILY 14 Days tab Atorvastatin [Lipitor] 40 mg PO DIRECTED 14 Days tab rOPINIRole HCL [Requip] 4 mg PO HS 14 Days tab Discontinued Melatonin 5 mg PO HS Acetaminophen Tab [Tylenol] 325 mg PO DAILY PRN PRN Reason: Pain Discharge Medication List Acetaminophen Tab [Tylenol] 650 mg PO Q4HR PRN tab 05/02/21 [Rx] Atorvastatin [Lipitor] 40 mg PO DIRECTED 14 Days tab 05/02/21 [Rx] DULoxetine HCL [Cymbalta] 30 mg PO DAILY 30 Days capsule 05/02/21 [Rx] Folic Acid 1 mg PO DAILY 14 Days tab 05/02/21 [Rx] Gabapentin 300 mg PO TID 14 Days #42 cap 05/02/21 [Rx] Melatonin 5 mg PO HS 14 Days tablet 05/02/21 [Rx] Mirtazapine [Remeron] 15 mg PO HS 14 Days tab 05/02/21 [Rx] Multivitamins, Thera [Multivitamin (formulary)] 1 each PO DAILY 14 Days tab 05/02/21 [Rx] Naltrexone HCl [Revia] 50 mg PO DAILY 14 Days tab 05/02/21 [Rx] Nicotine 14Mg/24Hr Patch [Habitrol] 1 patch TRANSDERM DAILY 14 Days patch 05/02/21 [Rx] Thiamine [Vitamin B-1] 100 mg PO DAILY 14 Days tab 05/02/21 [Rx] atenoloL 25 mg PO DAILY 14 Days tab 05/02/21 [Rx] rOPINIRole HCL [Requip] 4 mg PO HS 14 Days tab 05/02/21 [Rx] Follow up Appointment(s)/Referral(s): Janeth Art III, MD [Primary Care Provider] - 1 Week Activity/Diet/Wound Care/Special Instructions: Activity and diet as tolerated. Avoid the use of street drugs and alcohol. Take all medications as prescribed. When you are in need of refills on your medications please contact your medical provider and/or outpatient psychiatrist to have this done. Please go to scheduled outpatient appointment for aftercare treatment. If symptoms return or become worse, call the crisis line at and/or go to the nearest emergency room for evaluation Discharge Disposition: HOME SELF-CARE
== END 2021-05-02 12:30 | disposition home or self-care (01) | DRG 885 ==
LOC: 3MHU 16:01
PROVIDERS: ADMIT Psychiatry & Neurology Psychiatry; ATTEND Psychiatry & Neurology Psychiatry
DX: F33.2 Major depressive disorder, recurrent severe without psychotic features (principal); F41.9 Anxiety disorder, unspecified; G25.81 Restless legs syndrome; G47.00 Insomnia, unspecified; G47.30 Sleep apnea, unspecified; T42.6X2D Poisoning by other antiepileptic and sedative-hypnotic drugs, intentional self-harm, subsequent encounter; T42.8X2D Poisoning by antiparkinsonism drugs and other central muscle-tone depressants, intentional self-harm, subsequent encounter; E66.9 Obesity, unspecified; E78.5 Hyperlipidemia, unspecified; F10.10 Alcohol abuse, uncomplicated; F19.10 Other psychoactive substance abuse, uncomplicated; Y90.8 Blood alcohol level of 240 mg/100 ml or more; Z71.51 Drug abuse counseling and surveillance of drug abuser; F17.210 Nicotine dependence, cigarettes, uncomplicated; Z68.36 Body mass index [BMI] 36.0-36.9, adult; Z79.899 Other long term (current) drug therapy; Z98.890 Other specified postprocedural states; Z98.49 Cataract extraction status, unspecified eye; Z88.6 Allergy status to analgesic agent; Z63.5 Disruption of family by separation and divorce